=== PATIENT | female | born 1945 | race Two or more races ===

== ENCOUNTER → 2024-08-21 | Outpatient (CLI) | payer OTHER, SELFPAY ==
[2024-08-21 11:40] LABS: Collection Type, Urine Clean Catch
[2024-08-21 12:06] LABS: Basophils # (Auto) 0.1 Thou/mm3 (0.0-0.2); Basophils % (Auto) 1 % (0-2.5); Eosinophils % (Auto) 0 % (0-10); Hematocrit 37.6 % (36.0-46.0); Hemoglobin 12.7 g/dL (12.0-16.0); Immature Granulocytes % (Auto) 0 % (0-0); Immature Granulocytes Auto 0.02 Thou/mm3 (0.00-0.00); Lymphocytes # (Auto) 1.1 Thou/mm3 (1.0-4.8); Lymphocytes % (Auto) 13 % (10-50); Mean Corpuscular HGB Conc 33.8 g/dl (31.0-37.0); Mean Corpuscular Hemoglobin 31.1 pg (25.0-35.0); Mean Corpuscular Volume 92 fL (80-100); Monocytes # (Auto) 0.6 Thou/mm3 (0.0-0.8); Monocytes % (Auto) 7 % (0-12); Neutrophils # (Auto) 6.9 Thou/mm3 (1.8-7.7); Neutrophils % (Auto) 79 % (37-80); Nucleated Red Blood Cell % 0 /100 WBC (0); Platelet Count 245 Thou/mm3 (140-440); RDW Standard Deviation 45.5 fL (36.4-46.3); Red Blood Count 4.09 Miln/mm3 (4.00-5.20); White Blood Count 8.8 Thou/mm3 (3.6-11.0)
[2024-08-21 12:07] LABS: Bilirubin,Urine Negative (Negative); Blood,Urine Negative (Negative); Clarity,Urine Clear (Clear/Hazy); Color,Urine Colorless (Lt Yel-Yel); Culture Indicated,Urine Not Indicated; Glucose, Urine Negative (Negative); Ketones,Urine Negative (Negative); Leukocyte Esterase,Urine Negative (Negative); Nitrite,Urine Negative (Negative); Protein,Urine Negative (Neg - Trace); RBC,Urine 3 /hpf (0-3); Specific Gravity,Urine 1.009 (1.001-1.035); Squamous Epithelial Cell,Urine < 1 /hpf (0-5); Urobilinogen,Urine Negative mg/dL (0.0-1.0); WBC,Urine < 1 /hpf (0-5)
[2024-08-21 12:19] LABS: Alanine Aminotransferase 11 U/L (10-49); Albumin, Serum 4.9 gm/dL (3.4-4.8); Alkaline Phosphatase 97 U/L (46-116); Anion Gap 9 (7-16); Aspartate Amino Transferase 24 U/L (0-34); BUN/Creatinine Ratio 25 Ratio (12-20); Bilirubin,Total 0.4 mg/dL (0.3-1.2); Blood Urea Nitrogen 15 mg/dL (9-23); Calcium 10.1 mg/dL (8.3-10.6); Calcium (Corrected) 10.1 mg/dL (8.5-10.1); Carbon Dioxide 26.7 mMol/L (20.0-31.0); Cardiac Risk Estimate 2.1 RATIO (3.7-5.6); Chloride 97 mMol/L (98-107); Cholesterol 207 mg/dL (132-200); Creatinine (Component) 0.6 mg/dL (0.6-1.3); Globulin 2.4 gm/dL (2.3-3.5); Glucose 97 mg/dL (74-106); HDL Cholesterol 98 mg/dL (40-60); LDL Cholesterol,Calculated 95 mg/dL (0-130); Osmolality,Calculated 267 (275-295); Potassium 3.9 mMol/L (3.4-5.1); Sodium 133 mMol/L (136-145); Thyroid Stimulating Hormone 1.67 uIU/mL (0.55-4.78); Total Protein 7.3 gm/dL (5.7-8.2); Triglycerides 68 mg/dL (30-150); eGFR > 60 See Note
[2024-08-21 12:44] LABS: Glucose Estimated Average 94 mg/dL (80-131); Hemoglobin A1C 4.9 % Hgb (4.8-6.0)
== END | disposition home or self-care (01) ==
LOC: COPL 11:05
PROVIDERS: PCP Internal Medicine; Referring Provider Internal Medicine; Visit Provider Internal Medicine
DX: R10.9 Unspecified abdominal pain (principal); I10 Essential (primary) hypertension; K21.9 Gastro-esophageal reflux disease without esophagitis
CPT/HCPCS: 36415; 80053; 80061; 81001; 83036; 84443; 85025

== ENCOUNTER → 2024-08-22 | Outpatient (BNVA) | payer OTHER, SELFPAY | END | disposition home or self-care (01) | PROVIDERS: PCP Family Medicine; Referring Provider Family Medicine; Visit Provider Urology | DX: G89.4 Chronic pain syndrome (principal); N81.10 Cystocele, unspecified; N81.6 Rectocele; Z87.440 Personal history of urinary (tract) infections; K57.92 Diverticulitis of intestine, part unspecified, without perforation or abscess without bleeding; K57.90 Diverticulosis of intestine, part unspecified, without perforation or abscess without bleeding; I10 Essential (primary) hypertension; K21.9 Gastro-esophageal reflux disease without esophagitis | CPT/HCPCS: 99212; G0463 ==

== ENCOUNTER → 2024-09-21 | Outpatient (CLI) | payer OTHER, MEDICAID, SELFPAY ==
[2024-09-21 12:34] LABS: T4 (Thyroxine) 9.5 mcg/dL (4.5-10.9)
[2024-09-21 12:37] LABS: Alanine Aminotransferase 26 U/L (10-49); Albumin, Serum 5.1 gm/dL (3.4-4.8); Albumin/Globulin Ratio 1.8 (1.2-2.2); Alkaline Phosphatase 104 U/L (46-116); Anion Gap 10 (7-16); Aspartate Amino Transferase 24 U/L (0-34); BUN/Creatinine Ratio 23 Ratio (12-20); Bilirubin,Total 0.3 mg/dL (0.3-1.2); Blood Urea Nitrogen 16 mg/dL (9-23); Calcium 10.2 mg/dL (8.3-10.6); Calcium (Corrected) 10.2 mg/dL (8.5-10.1); Carbon Dioxide 27.1 mMol/L (20.0-31.0); Chloride 97 mMol/L (98-107); Creatinine (Component) 0.7 mg/dL (0.6-1.3); Free T4 (Free Thyroxine) 1.31 ng/dL (0.89-1.76); Globulin 2.8 gm/dL (2.3-3.5); Glucose 100 mg/dL (74-106); Osmolality,Calculated 269 (275-295); Potassium 3.9 mMol/L (3.4-5.1); Sodium 134 mMol/L (136-145); Thyroid Stimulating Hormone 1.74 uIU/mL (0.55-4.78); Total Protein 7.9 gm/dL (5.7-8.2); eGFR > 60 See Note
[2024-09-27 07:07] LABS: ACTH, Plasma* 28 pg/mL (6-50)
[2024-10-02 06:55] LABS: Cortisol,total,LC/MS/MS* 11.8 mcg/dL; DHEA Sulfate* 36 mcg/dL (7-177); T3,Total* 111 ng/dL (76-181)
== END | disposition home or self-care (01) ==
LOC: COPL 10:57
PROVIDERS: PCP Family Medicine; Referring Provider Internal Medicine; Visit Provider Internal Medicine
DX: E87.1 Hypo-osmolality and hyponatremia (principal)
CPT/HCPCS: 36415; 80053; 82024; 82533; 82627; 84436; 84439; 84443; 84480

== ENCOUNTER → 2024-09-27 | Outpatient (CLI) | payer OTHER, MEDICAID, SELFPAY ==
[2024-09-27 17:01] LABS: OBS Card Expiration Date 2026-09; OBS Card Lot # 23001; OBS Performed By LAB; OBS QC OK? Yes
[2024-09-27 17:45] LABS: OBS Developer Lot # 23003; Occult Blood, Stool Negative (Negative); Occult Blood, Stool #2 Negative (Negative); Occult Blood, Stool #3 Negative (Negative)
== END | disposition home or self-care (01) ==
LOC: SLDO 16:57
PROVIDERS: PCP Internal Medicine; Referring Provider Internal Medicine; Visit Provider Internal Medicine
DX: R10.9 Unspecified abdominal pain (principal)
CPT/HCPCS: 82270

== ENCOUNTER → 2025-01-19 | Outpatient (CLI) | payer OTHER, MEDICAID, SELFPAY | END | disposition home or self-care (01) | LOC: SLDO 14:53 | PROVIDERS: PCP Family Medicine; Referring Provider Nurse Practitioner Family; Visit Provider Nurse Practitioner Family | DX: N39.0 Urinary tract infection, site not specified (principal) | CPT/HCPCS: 87077; 87086; 87186 ==

== ENCOUNTER 2025-02-03 18:54 | Emergency (ER) | payer OTHER, MEDICAID, SELFPAY ==
[2025-02-03 19:15] VITALS: BP 167/82; PULSE 98; RESP 18; TEMP 36.6; O2SAT 97; BMI 17.5
--- NOTE | 2025-02-03 19:18 | PD.EDRME ---
Rapid Medical Screening Exam RME Arrival date/time: 02/03/25 18:54 Chief Complaint: Urogenital-Female Time Seen by Provider: 02/03/25 19:01 Vital signs: Vital Signs Temperature 98 F 02/03/25 19:15 Pulse Rate 98 02/03/25 19:15 Respiratory Rate 18 02/03/25 19:15 Blood Pressure 167/82 H 02/03/25 19:15 Pulse Oximetry (%) 97 02/03/25 19:15 Oxygen Delivery Method Room Air 02/03/25 19:15 RME Narrative: Dysuria, urgency x3 weeks. Patient completed course of Macrobid 4 days ago without symptom improvement. Denies fever, vomiting, flank pain
[2025-02-03 19:40] LABS: Collection Type, Urine Clean Catch
[2025-02-03 19:45] LABS: Bilirubin,Urine Negative (Negative); Blood,Urine Negative (Negative); Clarity,Urine Clear (Clear/Hazy); Color,Urine Lt-Yellow (Lt Yel-Yel); Glucose, Urine Negative (Negative); Ketones,Urine Negative (Negative); Leukocyte Esterase,Urine Negative (Negative); Nitrite,Urine Negative (Negative); PH,Urine 6.5 (5.0-7.0); Protein,Urine Negative (Neg - Trace); RBC,Urine 2 /hpf (0-3); Specific Gravity,Urine 1.008 (1.001-1.035); Squamous Epithelial Cell,Urine 4 /hpf (0-5); Urobilinogen,Urine Negative mg/dL (0.0-1.0); WBC,Urine 2 /hpf (0-5)
--- NOTE | 2025-02-03 20:10 | PD.EDFMALE ---
ED Female Urogenital RME/HPI General Chief complaint: Urogenital-Female Stated complaint: BLADDER INFECTION PAIN IN SIDES, EARS BUZZING Time Seen by Provider: 02/03/25 19:01 Arrival date/time: 02/03/25 18:54 RME / HPI RME / HPI Narrative: 79-year-old female patient with significant history of hypertension came in for evaluation regarding dysuria, urgency x3 weeks. Patient completed course of Macrobid 4 days ago without symptom improvement. Denies fever, vomiting, flank pain. Patient denies any vomiting. Denies any earache. Related Data Home Medications ?Medication ?Instructions ?Recorded ?Confirmed nifedipine 90 mg tablet,extended 90 mg PO DAILY 03/18/21 08/22/24 release benazepril 20 mg tablet 20 mg PO DAILY 09/24/21 08/22/24 cilostazol 100 mg tablet 100 mg PO DAILY 09/24/21 08/22/24 fluticasone propionate 50 2 spray intranasal DAILY 09/24/21 08/22/24 mcg/actuation nasal spray,suspension loratadine 10 mg tablet 10 mg PO DAILY 09/24/21 08/22/24 omeprazole 40 mg capsule,delayed 40 mg PO DAILY 09/24/21 08/22/24 release docusate sodium 100 mg capsule 100 mg PO BID 03/15/23 08/22/24 estradiol 0.01% (0.1 mg/gram) 2 g vaginal DIRECTED 08/22/24 08/22/24 vaginal cream (Estrace) Previous Rx's ?Medication ?Instructions ?Recorded sodium chloride 1,000 mg soluble 1,000 mg PO QDAY #30 tabs 10/22/23 tablet Allergies Allergy/AdvReac Type Severity Reaction Status Date / Time ciprofloxacin Allergy Severe Gastrointestinal Verified 02/03/25 18:57 Upset codeine Allergy Severe SOB/CHEST Verified 02/03/25 18:57 PAIN Penicillins Allergy Severe Difficulty Verified 02/03/25 18:57 Breathing sulfamethoxazole Allergy Severe Hallucinati Verified 02/03/25 18:57 ng adhesive tape Allergy Intermediate Rash Verified 02/03/25 18:57 Review of Systems Review of Systems Narrative Review of Systems: Review of system reviewed and within normal limits except mentioned in HPI ED Exam Narrative Physical exam: VITAL SIGNS: Reviewed. GENERAL APPEARANCE: Alert and interactive, follows commands, no acute distress, HEAD AND FACE: Non-traumatic. ENT: PERRL, pink conjunctivitis, eyelid no trauma, Mucous membrane moist. NECK: Supple, nontender, no nuchal rigidity. CHEST: No tenderness, no crepitus, no paradoxical movement, no retractions. LUNGS: Clear, well ventilated, symmetric, no rales, no wheezing, no ronchi, no stridor, good breath sounds bilaterally. HEART: Regular rate, regular rhythm, no murmur, no gallops. ABDOMEN: Soft, positive bowel sounds, nondistended, no guarding, nontender, no rebound, no masses, RECTAL: Deferred. GENITAL: Deferred. NEUROLOGICAL: Gross motor function intact sensory function intact, Appropriate for age. MUSCULOSKELETAL: low back nontender, full range of motion. EXTREMITIES: Nontender, full range of motion. SKIN: Color pink, dry, no rash, no lacerations, no abrasions, no contusions. LYMPHATICS: Deferred. Course Quality Measures none Orders Category Date Time Status UA [Urinalysis] Stat Lab 02/03/25 19:35 Completed Urine Culture Stat Lab 02/03/25 19:19 Received Vital Signs Vital signs: Vital Signs Temperature 98 F 02/03/25 19:15 Pulse Rate 98 02/03/25 19:15 Respiratory Rate 18 02/03/25 19:15 Blood Pressure 167/82 H 02/03/25 19:15 Pulse Oximetry (%) 97 02/03/25 19:15 Oxygen Delivery Method Room Air 02/03/25 19:15 Urogenital - Female MDM Narrative MDM Narrative:: 79-year-old female patient with significant history of hypertension came in for evaluation regarding dysuria, urgency x3 weeks. Patient completed course of Macrobid 4 days ago without symptom improvement. Denies fever, vomiting, flank pain. Patient denies any vomiting. Denies any earache. Patient's urinalysis came back unremarkable. Patient was advised to drink a lot of fluids and follow-up with PCP if symptoms persist patient is to be seen by urologist. Patient agrees with plan Patient data External records reviewed:: None Clinical information provided by:: patient Social determinants that could affect healthcare access:: none Patient has the following chronic illnesses:: None How is presenting disease/condition affected by chronic disease/condition?: no chronic disease Evaluation data The following diagnostics were reviewed and interpreted by me:: lab results Lab and/or radiology exams considered but not ordered:: None Interpretation Summary: Urinalysis came back unremarkable. No sign of UTI Medications / Prescriptions Medications or Prescriptions considered but not ordered:: None Medication administrations:: None Consultations Consultation(s) initiated? (list below): No Diagnosis Urogenital Female Differential Diagnosis: urinary tract infection, vaginitis and cystitis Most likely diagnosis given after review of the tests above:: Dysuria Admission Indicated Admission indicated?: not indicated Admission Request Was there a request for admission?: No Disposition Plan Disposition Plan: Discharge Discharge Attestation Discharge Attestation: The patient and all family members were given an opportunity to ask questions and understood the discharge instructions. Discharge instructions specifically effects, indications for sooner follow up or return to the emergency department, and the expected course of current diagnosis. Patient condition: Stable Discharge Plan Plan Patient Disposition: HOME (Self Care) Discharge Disposition comment: Stable Prescriptions/Referrals Prescriptions/Med Rec: No Action nifedipine 90 mg tablet extended release 90 mg PO DAILY estradiol [Estrace] 0.01 % (0.1 mg/gram) cream 2 g vaginal DIRECTED Patient Comments: Twice a week cilostazol 100 mg tablet 100 mg PO DAILY omeprazole 40 mg capsule,delayed release(DR/EC) 40 mg PO DAILY benazepril 20 mg tablet 20 mg PO DAILY fluticasone propionate 50 mcg/actuation spray,suspension 2 spray INTRANASAL DAILY loratadine 10 mg tablet 10 mg PO DAILY sodium chloride 1,000 mg tablet,soluble 1,000 mg PO QDAY Qty: 30 0RF docusate sodium 100 mg Capsule 100 mg PO BID Referrals: Constantine Campbell [Primary Care Provider] - In 1 week Problem List Clinical Impression: Dysuria Patient/Caregiver Discharge Instructions Discharge Activity: activity as tolerated Education Materials: ED Dysuria, Uncertain Cause (Adult) Additional Instructions: Thank you for the opportunity for serving you today. You are stable for discharged . You are advised to: Follow-up with your PCP in 1 to 2 days Return to ED for worsening of symptoms Increase oral fluids Print Language: Mohawk Stand Alone Forms: Leilani Award Info., Patient Portal Info Letter
[2025-02-03 20:37] VITALS: RESP 16
== END 2025-02-03 20:37 | disposition home or self-care (01) ==
PROVIDERS: Physician Assistant; Emergency Provider Emergency Medicine; PCP Internal Medicine
DX: R30.0 Dysuria (principal); I10 Essential (primary) hypertension
CPT/HCPCS: 81001; 87086; 99283

== ENCOUNTER → 2025-02-20 | Outpatient (BNVA) | payer OTHER, MEDICAID, SELFPAY | END | disposition home or self-care (01) | PROVIDERS: PCP Family Medicine; Referring Provider Family Medicine; Visit Provider Urology | DX: N81.10 Cystocele, unspecified (principal); N81.6 Rectocele; Z87.440 Personal history of urinary (tract) infections; I10 Essential (primary) hypertension; K21.9 Gastro-esophageal reflux disease without esophagitis | CPT/HCPCS: 81003; 99212; G0463 ==

== ENCOUNTER 2025-03-01 16:38 | Emergency (ER) | payer OTHER, MEDICAID, SELFPAY ==
[2025-03-01 17:28] VITALS: BP 173/66; PULSE 89; RESP 18; TEMP 36.7; O2SAT 99
[2025-03-01 17:29] VITALS: BMI 20.5
--- NOTE | 2025-03-01 17:31 | XR_ITS ---
Examination: PA chest single view TECHNIQUE: Upright PA chest single view Date and time: March 01, 2025 1755 hours Comparison April 18, 2024 INDICATIONS: Epigastric pain today. FINDINGS: Normal heart size. No pneumonia or pulmonary edema Moderate hyperexpansion Prominent osteopenia IMPRESSION: COPD. No pneumonia or pulmonary edema
--- NOTE | 2025-03-01 17:31 | EKG_ITS ---
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
--- NOTE | 2025-03-01 17:32 | EDNOTE_ITS ---
<Statement entered by Courtney Baires MD - 03/02/25 18:31> As co-signing physician, I was present and available for consult prn. I concur with the plan and care as documented by the midlevel provider. ED Abdominal Pain RME/HPI General Chief Complaint: Abdominal Pain Stated complaint: PAIN IN STOMACH SINCE LAST WEEK; ACID REFLUX Time seen by provider: 03/01/25 17:27 Arrival date/time: 03/01/25 16:38 RME / HPI RME / HPI narrative: 80-year-old female patient came in for evaluation regarding epigastric pain. Patient has been having worsening epigastric pain for at least 1 week, described as burning-like sensation, associated with nausea. Patient denies any chest pain. Denies any shortness of breath denies any cough denies any diarrhea or constipation denies any fever denies any complaints no medications Prior travel. Related Data Home Medications ?Medication ?Instructions ?Recorded ?Confirmed nifedipine 90 mg tablet,extended 90 mg PO DAILY 08/22/24 release benazepril 20 mg tablet 20 mg PO DAILY 09/24/2112/11 cilostazol 100 mg tablet 100 mg PO DAILY 09/24/2112/11 fluticasone propionate 50 2 spray intranasal DAILY 02/0808/22/24 mcg/actuation nasal spray,suspension loratadine 10 mg tablet 10 mg PO DAILY 09/24/2112/11 omeprazole 40 mg capsule,delayed 40 mg PO DAILY 08/22/24 release docusate sodium 100 mg capsule 100 mg PO BID 03/15/23 08/22/24 estradiol 0.01% (0.1 mg/gram) 2 g vaginal DIRECTED 08/22/24 08/22/24 vaginal cream (Estrace) Previous Rx's ?Medication ?Instructions ?Recorded sodium chloride 1,000 mg soluble 1,000 mg PO QDAY #30 tabs 10/22/23 tablet aluminum-mag hydroxide-simethicone 10 ml PO TID PRN in digestion #300 03/01/25 400 mg-400 mg-40 mg/5 mL oral susp mL (Maalox Maximum Strength) pantoprazole 40 mg tablet,delayed 40 mg PO QDAY #30 ta bs 03/01/25 release (Protonix) Allergies Allergy/AdvReac Type Severity Reaction Status Date / Time ciprofloxacin Allergy Severe Gastrointestinal Verified 03/01/25 16:41 Upset codeine Allergy Severe SOB/CHEST Verified 03/01/25 16:41 PAIN Penicillins Allergy Severe Difficulty Verified 03/01/25 16:41 Breathing sulfamethoxazole Allergy Severe Hallucinati Verified 03/01/25 16:41 ng adhesive tape Allergy Intermediate Rash Verified 03/01/25 16:41 Review of Systems Review of Systems Narrative Review of Systems: Review of system reviewed and within normal limits except mentioned in HPI ED Exam Narrative Physical exam: VITAL SIGNS: Reviewed. GENERAL APPEARANCE: Alert and interactive, follows commands, no acute distress, HEAD AND FACE: Non-traumatic. ENT: PERRL, pink conjunctivitis, eyelid no trauma, Mucous membrane moist. NECK: Supple, nontender, no nuchal rigidity. CHEST: No tenderness, no crepitus, no paradoxical movement, no retractions. LUNGS: Clear, well ventilated, symmetric, no rales, no wheezing, no ronchi, no stridor, good breath sounds bilaterally. HEART: Regular rate, regular rhythm, no murmur, no gallops. ABDOMEN: Soft, positive bowel sounds, nondistended, no guarding, epigastric tenderness,, no rebound, no masses, RECTAL: Deferred. GENITAL: Deferred. NEUROLOGICAL: Gross motor function intact sensory function intact, Appropriate for age. MUSCULOSKELETAL: low back nontender, full range of motion. EXTREMITIES: Nontender, full range of motion. SKIN: Color pink, dry, no rash, no lacerations, no abrasions, no contusions. LYMPHATICS: Deferred. Course Quality Measures none Orders Category Date Time Status EKG (ED ONLY) *Do not use* NOW Care 03/01/25 17:31 Completed EKG (ED Only) Stat Exams 03/01/25 17:31 Draft XR chest 1V Stat Exams 03/01/25 17:31 Completed CBC Stat Lab 03/01/25 17:44 Completed Comprehensive Metabolic Panel Stat Lab 03/01/25 17:44 Completed Partial Thromboplastin Time Stat Lab 03/01/25 17:44 Completed Troponin I Stat Lab 03/01/25 17:44 Completed Urinalysis, C/S if Indicated Stat Lab 03/01/25 18:20 Completed Acetaminophen Tab [Tylenol ES Tab] Med 03/01/25 17:32 Discontinued 500 mg PO X1 ONE mg Hyd/Al Hyd/Melonie Susp [Maalox Susp] Med 03/01/25 17:32 Discontinued 30 ml PO X1 ONE Vital Signs Vital signs: Vital Signs Temperature 98.0 F 03/01/25 17:28 Pulse Rate 89 03/01/25 17:28 Respiratory Rate 18 03/01/25 17:28 Blood Pressure 173/66 H 03/01/25 17:28 Pulse Oximetry (%) 99 03/01/25 17:28 Oxygen Delivery Method Room Air 03/01/25 17:28 Abdominal Pain MDM [facility] Narrative [facility] Narrative:: 80-year-old female patient came in for evaluation regarding epigastric pain. Patient has been having worsening epigastric pain for at least 1 week, described as burning-like sensation, associated with nausea. Patient denies any chest pain. Denies any shortness of breath denies any cough denies any diarrhea or constipation denies any fever denies any complaints no medications Prior travel. Patient's cardiac workup all came back unremarkable including normal chest x- ray. Patient was given Maalox with significant improvement of symptoms. EKG showed normal sinus rhythm, ventricular rate of [address] segment elevat ion depression noted. Patient appears nontoxic and hemodynamically stable .Decision to discharge the patient. The patient/family was given an opportunity to ask questions and understood their discharge instructions. Discharge instructions specifically included follow up provider and time frame, current and/or new medications and possible side effects, indications for sooner follow up or return to the emergency department, and the expected course of current diagnosis. Patient reports feeling better as well and giving evidence of significant clinical improvement, I believe patient is now a candidate for discharge. Patient data External records reviewed:: None Clinical information provided by:: patient Social determinants that could affect healthcare access:: none Patient has the following chronic illnesses:: None How is presenting disease/condition affected by chronic disease/condition?: no chronic disease Evaluation data The following diagnostics were reviewed and interpreted by me:: lab results, radiology exam(s) and EKG tracing(s) Lab and/or radiology exams considered but not ordered:: None Interpretation Summary: See results [facility] Medications / Prescriptions Medications or Prescriptions considered but not ordered:: None Medication administrations:: Medication Administration History Discontinued Medications Acetaminophen (Acetaminophen 500 Mg Tablet) 500 mg PO X1 ONE Stop: 03/01/25 17:33 Last Admin: 03/01/25 17:46 Dose: 500 mg Documented By: DANIELA Al Hydrox/Mg Hydrox/Simethicone (Mg Hyd/Al Hyd/Melonie (Maalox Reg) Susp 30 Ml Udc) 30 ml PO X1 ONE Stop: 03/01/25 17:33 Last Admin: 03/01/25 17:46 Dose: 30 ml Documented By: DANIELA Tylenol Maalox Consultations Consultation(s) initiated? (list below): No Diagnosis Differential diagnosis abdominal pain: abdominal pain, gastroenteritis and other (GERD) Most likely diagnosis given after review of the tests above:: GERD Admission Indicated Admission indicated?: not indicated Admission Request Was there a request for admission?: No Disposition Plan Disposition Plan: Discharge Discharge Attestation Discharge Attestation: The patient and all family members were given an opportunity to ask questions and understood the discharge instructions. Discharge instructions specifically effects, indications for sooner follow up or return to the emergency department, and the expected course of current diagnosis. Patient condition: Stable Discharge Plan Plan Patient Disposition: HOME (Self Care) Discharge Disposition comment: Stable Prescriptions/Referrals Prescriptions/Med Rec: New pantoprazole [Protonix] 40 mg tablet,delayed release (DR/EC) 40 mg PO QDAY Qty: 30 0RF alum-mag hydroxide-simeth [Maalox Maximum Strength] 400-400-40 mg/5 mL suspension 10 ml PO TID PRN (Reason: indigestion) Qty: 300 0RF No Action nifedipine 90 mg tablet extended release 90 mg PO DAILY estradiol [Estrace] 0.01 % (0.1 mg/gram) cream 2 g vaginal DIRECTED Patient Comments: Twice a week cilostazol 100 mg tablet 100 mg PO DAILY omeprazole 40 mg capsule,delayed release(DR/EC) 40 mg PO DAILY benazepril 20 mg tablet 20 mg PO DAILY fluticasone propionate 50 mcg/actuation spray,suspension 2 spray INTRANASAL DAILY loratadine 10 mg tablet 10 mg PO DAILY sodium chloride 1,000 mg tablet,soluble 1,000 mg PO QDAY Qty: 30 0RF docusate sodium 100 mg Capsule 100 mg PO BID Referrals: No Primary/Family,Physician [Primary Care Provider] - In 1 week Problem List Clinical Impression: GERD (gastroesophageal reflux disease) Patient/Caregiver Discharge Instructions Discharge Activity: activity as tolerated Education Materials: ED GERD (Adult) Additional Instructions: Thank you for the opportunity for serving you today. You are stable for discharged . You are advised to: Follow-up with your PCP in 1 to 2 days Return to ED for worsening of symptoms Increase oral fluids Take medication as prescribed Print Language: Colombian Stand Alone Forms: Leilani Award Info., Patient Portal Info Letter PA/CARTON FOLDER Supervising Physician MECHELLE/AGNIESZKA Supervising Physician: MD Dequan
[2025-03-01] MEDS: MG HYD/AL HYD/SIME (Maalox Reg) SUSP 30 ML UDC PO (17:46)
[2025-03-01] MEDS: ACETAMINOPHEN 500 MG TABLET PO (17:46)
[2025-03-01 17:53] LABS: Basophils # (Auto) 0.1 Thou/mm3 (0.0-0.2); Basophils % (Auto) 1 % (0-2.5); Eosinophils # (Auto) 0.1 Thou/mm3 (0.0-0.5); Eosinophils % (Auto) 1 % (0-10); Hemoglobin 11.8 g/dL (12.0-16.0); Immature Granulocytes % (Auto) 0 % (0-0); Immature Granulocytes Auto 0.02 Thou/mm3 (0.00-0.00); Lymphocytes # (Auto) 1.6 Thou/mm3 (1.0-4.8); Lymphocytes % (Auto) 17 % (10-50); Mean Corpuscular HGB Conc 35.8 g/dl (31.0-37.0); Mean Corpuscular Hemoglobin 30.4 pg (25.0-35.0); Mean Corpuscular Volume 85 fL (80-100); Monocytes # (Auto) 0.8 Thou/mm3 (0.0-0.8); Monocytes % (Auto) 8 % (0-12); Neutrophils # (Auto) 7.2 Thou/mm3 (1.8-7.7); Neutrophils % (Auto) 73 % (37-80); Nucleated Red Blood Cell % 0 /100 WBC (0); Platelet Count 237 Thou/mm3 (140-440); RDW Standard Deviation 43.2 fL (36.4-46.3); Red Blood Count 3.88 Miln/mm3 (4.00-5.20); White Blood Count 9.9 Thou/mm3 (3.6-11.0)
[2025-03-01 18:07] LABS: Partial Thromboplastin Time 29.3 Seconds (22.0-36.0)
[2025-03-01 18:11] LABS: Alanine Aminotransferase 20 U/L (10-49); Albumin, Serum 4.9 gm/dL (3.4-4.8); Albumin/Globulin Ratio 1.9 (1.2-2.2); Alkaline Phosphatase 105 U/L (46-116); Anion Gap 10 (7-16); Aspartate Amino Transferase 23 U/L (0-34); BUN/Creatinine Ratio 14 Ratio (12-20); Bilirubin,Total 0.2 mg/dL (0.3-1.2); Blood Urea Nitrogen 10 mg/dL (9-23); Calcium 9.4 mg/dL (8.3-10.6); Calcium (Corrected) 9.4 mg/dL (8.5-10.1); Carbon Dioxide 27.3 mMol/L (20.0-31.0); Chloride 95 mMol/L (98-107); Creatinine (Component) 0.7 mg/dL (0.6-1.3); Estimated Creatinine Clearance 42.1 mL/min (>60); Globulin 2.6 gm/dL (2.3-3.5); Glucose 98 mg/dL (74-106); Osmolality,Calculated 263 (275-295); Potassium 3.5 mMol/L (3.4-5.1); Sodium 132 mMol/L (136-145); Total Protein 7.5 gm/dL (5.7-8.2); Troponin I < 0.020 ng/mL (0.0-0.045); eGFR > 60 See Note
[2025-03-01 18:48] LABS: Collection Type, Urine Clean Catch
[2025-03-01 18:55] LABS: Bilirubin,Urine Negative (Negative); Blood,Urine Negative (Negative); Clarity,Urine Clear (Clear/Hazy); Color,Urine Colorless (Lt Yel-Yel); Culture Indicated,Urine Not Indicated; Glucose, Urine Negative (Negative); Ketones,Urine Negative (Negative); Leukocyte Esterase,Urine Negative (Negative); Nitrite,Urine Negative (Negative); PH,Urine 6.5 (5.0-7.0); Protein,Urine Negative (Neg - Trace); RBC,Urine 2 /hpf (0-3); Specific Gravity,Urine 1.009 (1.001-1.035); Squamous Epithelial Cell,Urine 1 /hpf (0-5); Urobilinogen,Urine Negative mg/dL (0.0-1.0); WBC,Urine 1 /hpf (0-5)
[2025-03-01 19:29] VITALS: BP 132/77; PULSE 78; RESP 18; TEMP 36.8; O2SAT 98
== END 2025-03-01 19:30 | disposition home or self-care (01) ==
PROVIDERS: Nurse Practitioner Family; Emergency Provider Emergency Medicine
DX: K21.9 Gastro-esophageal reflux disease without esophagitis (principal); J44.9 Chronic obstructive pulmonary disease, unspecified
CPT/HCPCS: 36415; 71045; 80053; 81001; 84484; 85025; 85730; 93005; 99283; A9270

== ENCOUNTER → 2025-03-15 | Outpatient (CLI) | payer OTHER, MEDICAID, SELFPAY ==
[2025-03-15 17:53] LABS: Basophils # (Auto) 0.1 Thou/mm3 (0.0-0.2); Basophils % (Auto) 1 % (0-2.5); Eosinophils # (Auto) 0.1 Thou/mm3 (0.0-0.5); Eosinophils % (Auto) 1 % (0-10); Hematocrit 34.4 % (36.0-46.0); Hemoglobin 11.5 g/dL (12.0-16.0); Immature Granulocytes % (Auto) 0 % (0-0); Immature Granulocytes Auto 0.03 Thou/mm3 (0.00-0.00); Lymphocytes # (Auto) 1.4 Thou/mm3 (1.0-4.8); Lymphocytes % (Auto) 15 % (10-50); Mean Corpuscular HGB Conc 33.4 g/dl (31.0-37.0); Mean Corpuscular Hemoglobin 30.1 pg (25.0-35.0); Mean Corpuscular Volume 90 fL (80-100); Monocytes # (Auto) 0.8 Thou/mm3 (0.0-0.8); Monocytes % (Auto) 9 % (0-12); Neutrophils % (Auto) 75 % (37-80); Nucleated Red Blood Cell % 0 /100 WBC (0); Platelet Count 149 Thou/mm3 (140-440); RDW Standard Deviation 46.2 fL (36.4-46.3); Red Blood Count 3.82 Miln/mm3 (4.00-5.20); White Blood Count 9.3 Thou/mm3 (3.6-11.0)
[2025-03-15 18:06] LABS: Alanine Aminotransferase 21 U/L (10-49); Albumin, Serum 4.5 gm/dL (3.4-4.8); Albumin/Globulin Ratio 1.9 (1.2-2.2); Alkaline Phosphatase 89 U/L (46-116); Anion Gap 10 (7-16); Aspartate Amino Transferase 28 U/L (0-34); BUN/Creatinine Ratio 17 Ratio (12-20); Bilirubin,Total 0.2 mg/dL (0.3-1.2); Blood Urea Nitrogen 12 mg/dL (9-23); Calcium 9.1 mg/dL (8.3-10.6); Calcium (Corrected) 9.1 mg/dL (8.5-10.1); Carbon Dioxide 26.4 mMol/L (20.0-31.0); Chloride 97 mMol/L (98-107); Creatinine (Component) 0.7 mg/dL (0.6-1.3); Globulin 2.4 gm/dL (2.3-3.5); Glucose 101 mg/dL (74-106); Osmolality,Calculated 266 (275-295); Potassium 3.7 mMol/L (3.4-5.1); Sodium 133 mMol/L (136-145); Total Protein 6.9 gm/dL (5.7-8.2); eGFR > 60 See Note
== END | disposition home or self-care (01) ==
LOC: COPL 16:27
PROVIDERS: PCP Internal Medicine; Referring Provider Internal Medicine; Visit Provider Internal Medicine
DX: R10.84 Generalized abdominal pain (principal); I10 Essential (primary) hypertension
CPT/HCPCS: 36415; 80053; 85025

== ENCOUNTER 2025-04-15 22:28 | Emergency (ER) | payer MEDICAID, SELFPAY ==
--- NOTE | 2025-04-15 22:30 | EKG_ITS ---
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
[2025-04-15 22:32] VITALS: BP 179/97; BP 190/106; PULSE 101; RESP 19; TEMP 36.7; O2SAT 99
[2025-04-15 22:34] VITALS: BMI 17.2
[2025-04-16 00:52] VITALS: BP 178/89; PULSE 77; RESP 18; TEMP 36.5; O2SAT 99
--- NOTE | 2025-04-16 01:52 | PD.EDRME ---
Rapid Medical Screening Exam RME Arrival date/time: 04/15/25 22:28 Chief Complaint: General Adult/Misc Complain Time Seen by Provider: 04/16/25 01:43 Vital signs: Vital Signs Temperature 98.1 F 04/15/25 22:32 Pulse Rate 101 H 04/15/25 22:32 Respiratory Rate 19 04/15/25 22:32 Blood Pressure 190/106 H 04/15/25 22:32 Pulse Oximetry (%) 99 04/15/25 22:32 Oxygen Delivery Method Room Air 04/15/25 22:32 Vital signs reviewed by provider: Yes RME Narrative: 80-year-old female with a past medical history of hypertension, GERD, and allergies presents to the ED with a complaint of elevated blood pressure for the past 1 week. She states she has been taking her blood pressure medications as prescribed. She has some associated nausea and frontal headache. She states she has been eating bologna sandwiches approximately twice weekly. She has not contacted her primary care physician but states she does have an appointment on the as previously scheduled. She denies any recent illness with fever, chills, cough, ear pain or sore throat. She denies any chest pain, shortness of breath, visual changes or unusual headache. She denies vomiting, diarrhea or abdominal pain. I have greeted and performed a focused initial assessment of this patient. A comprehensive ED assessment and evaluation of the patient, analysis of all test results, and completion of the medical decision making process will be conducted by additional ED providers.
--- NOTE | 2025-04-16 01:55 | XR_ITS ---
Examination: PA lateral chest 2 views TECHNIQUE: Upright PA and lateral chest 2 views Date and time: April 16, 2025, 0207 hours INDICATIONS: High blood pressure 1 week FINDINGS: Normal heart size Ectatic thoracic aorta. No pneumonia or pulmonary edema. Prominent osteopenia IMPRESSION: No pneumonia or pulmonary edema.
[2025-04-16 02:16] VITALS: BP 181/97; PULSE 80
[2025-04-16] MEDS: METOPROLOL SUCCINATE XL 25 MG TABCR PO (02:16)
[2025-04-16 02:29] LABS: Collection Type, Urine Clean Catch
[2025-04-16 02:42] LABS: Bilirubin,Urine Negative (Negative); Blood,Urine Negative (Negative); Clarity,Urine Clear (Clear/Hazy); Color,Urine Lt-Yellow (Lt Yel-Yel); Culture Indicated,Urine Not Indicated; Glucose, Urine Negative (Negative); Hyaline Casts,Urine < 1 /hpf (0-1); Ketones,Urine 1+ (Negative); Leukocyte Esterase,Urine Negative (Negative); Nitrite,Urine Negative (Negative); PH,Urine 7.5 (5.0-7.0); Protein,Urine Negative (Neg - Trace); RBC,Urine 3 /hpf (0-3); Specific Gravity,Urine 1.009 (1.001-1.035); Squamous Epithelial Cell,Urine 2 /hpf (0-5); Urobilinogen,Urine Negative mg/dL (0.0-1.0); WBC,Urine 1 /hpf (0-5)
[2025-04-16 02:44] LABS: Basophils # (Auto) 0.1 Thou/mm3 (0.0-0.2); Basophils % (Auto) 1 % (0-2.5); Eosinophils # (Auto) 0.0 Thou/mm3 (0.0-0.5); Eosinophils % (Auto) 0 % (0-10); Hematocrit 39.1 % (36.0-46.0); Hemoglobin 13.2 g/dL (12.0-16.0); Immature Granulocytes Auto 0.01 Thou/mm3 (0.00-0.00); Lymphocytes # (Auto) 1.7 Thou/mm3 (1.0-4.8); Lymphocytes % (Auto) 23 % (10-50); Mean Corpuscular HGB Conc 33.8 g/dl (31.0-37.0); Mean Corpuscular Hemoglobin 30.5 pg (25.0-35.0); Mean Corpuscular Volume 90 fL (80-100); Monocytes # (Auto) 0.6 Thou/mm3 (0.0-0.8); Monocytes % (Auto) 8 % (0-12); Neutrophils # (Auto) 5.0 Thou/mm3 (1.8-7.7); Neutrophils % (Auto) 68 % (37-80); Nucleated Red Blood Cell # 0.00 Thou/mm3 (0.00-0.00); Nucleated Red Blood Cell % 0 /100 WBC (0); Platelet Count 267 Thou/mm3 (140-440); RDW Standard Deviation 44.6 fL (36.4-46.3); Red Blood Count 4.33 Miln/mm3 (4.00-5.20); White Blood Count 7.3 Thou/mm3 (3.6-11.0)
[2025-04-16 03:00] LABS: INR 1.0 (0.9-1.3); Partial Thromboplastin Time 30.9 Seconds (22.0-36.0); Prothrombin Time 10.9 Seconds (9.0-12.2)
[2025-04-16 03:03] LABS: B-Type Natriuretic Peptide 31 pg/mL (0-100)
[2025-04-16 03:05] LABS: Alanine Aminotransferase 17 U/L (10-49); Albumin, Serum 5.2 gm/dL (3.4-4.8); Albumin/Globulin Ratio 1.7 (1.2-2.2); Alkaline Phosphatase 95 U/L (46-116); Anion Gap 12 (7-16); Aspartate Amino Transferase 24 U/L (0-34); BUN/Creatinine Ratio 10 Ratio (12-20); Bilirubin,Total 0.5 mg/dL (0.3-1.2); Blood Urea Nitrogen 7 mg/dL (9-23); Calcium 9.9 mg/dL (8.3-10.6); Calcium (Corrected) 9.9 mg/dL (8.5-10.1); Carbon Dioxide 25.2 mMol/L (20.0-31.0); Chloride 92 mMol/L (98-107); Creatinine (Component) 0.7 mg/dL (0.6-1.3); Estimated Creatinine Clearance 45.3 mL/min (>60); Globulin 3.1 gm/dL (2.3-3.5); Glucose 118 mg/dL (74-106); LDH (Lactate Dehydrogenase) 202 U/L (120-246); Magnesium 1.8 mg/dL (1.6-2.6); Osmolality,Calculated 257 (275-295); Potassium 3.6 mMol/L (3.4-5.1); Sodium 129 mMol/L (136-145); Total Protein 8.3 gm/dL (5.7-8.2); Troponin I < 0.020 ng/mL (0.0-0.045); eGFR > 60 See Note
[2025-04-16 03:06] VITALS: BP 184/110; BP 185/109; PULSE 78; RESP 18; TEMP 36.7; O2SAT 99
--- NOTE | 2025-04-16 03:48 | PD.EDRECHK ---
ED Recheck Abnl Lab Rx-RME/HPI General Chief Complaint: General Adult/Misc Complain Stated Complaint: HIGH BP Time Seen by Provider: 04/16/25 01:43 Arrival date/time: 04/15/25 22:28 RME / HPI RME / HPI narrative: 80-year-old female with a past medical history of hypertension, GERD, and allergies presents to the ED with a complaint of elevated blood pressure for the past 1 week. She states she has been taking her blood pressure medications as prescribed. She has some associated nausea and frontal headache. She states she has been eating [employer] sandwiches approximately twice weekly. She has not contacted her primary care physician but states she does have an appointment on the as previously scheduled. She denies any recent illness with fever, chills, cough, ear pain or sore throat. She denies any chest pain, shortness of breath, visual changes or unusual headache. She denies vomiting, diarrhea or abdominal pain. I have greeted and performed a focused initial assessment of this patient. A comprehensive ED assessment and evaluation of the patient, analysis of all test results, and completion of the medical decision making process will be conducted by additional ED providers. DR. HUFFMAN MAIN ED EVALUATION: 80 y/o female with Hx of HTN presents to ED c/o elevated blood pressure of 180/110 at home x 12 hours ago. Patient takes Benazepril 20 mg and 90 mg of an unknown medication each morning for management of hypertension. Denies any chest pain or shortness of breath. Denies any recent dietary changes. Patent has not yet spoken to PCP for changes in medication dosage. No other concerns or complaints expressed at this time. Related Data Home Medications ?Medication ?Instructions ?Recorded ?Confirmed nifedipine 90 mg tablet,extended 90 mg PO DAILY 03/18/21 08/22/24 release benazepril 20 mg tablet 20 mg PO DAILY 09/24/21 08/22/24 cilostazol 100 mg tablet 100 mg PO DAILY 09/24/21 08/22/24 fluticasone propionate 50 2 spray intranasal DAILY 09/24/21 08/22/24 mcg/actuation nasal spray,suspension loratadine 10 mg tablet 10 mg PO DAILY 09/24/21 08/22/24 omeprazole 40 mg capsule,delayed 40 mg PO DAILY 09/24/21 08/22/24 release docusate sodium 100 mg capsule 100 mg PO BID 03/15/23 08/22/24 estradiol 0.01% (0.1 mg/gram) 2 g vaginal DIRECTED 08/22/24 08/22/24 vaginal cream (Estrace) Previous Rx's ?Medication ?Instructions ?Recorded sodium chloride 1,000 mg soluble 1,000 mg PO QDAY #30 tabs 10/22/23 tablet aluminum-mag hydroxide-simethicone 10 ml PO TID PRN indigestion #300 03/01/25 400 mg-400 mg-40 mg/5 mL oral susp mL (Maalox Maximum Strength) pantoprazole 40 mg tablet,delayed 40 mg PO QDAY #30 tabs 03/01/25 release (Protonix) Allergies Allergy/AdvReac Type Severity Reaction Status Date / Time ciprofloxacin Allergy Severe Gastrointestinal Verified 04/15/25 22:28 Upset codeine Allergy Severe SOB/CHEST Verified 04/15/25 22:28 PAIN Penicillins Allergy Severe Difficulty Verified 04/15/25 22:28 Breathing sulfamethoxazole Allergy Severe Hallucinati Verified 04/15/25 22:28 ng adhesive tape Allergy Intermediate Rash Verified 03/01/25 16:41 Review of Systems Review of Systems Systems Reviewed: All systems reviewed, normal except as documented Past Medical History Past Medical History CARDIAC: Positive Cardiac Disorders and Hypertension GASTROINTESTINAL: Positive Gastrointestinal Disorders, Hemorrhoids and Gastroesophageal Reflux Disease REPRODUCTIVE: Positive Previous Pregnancies MUSCULOSKELETAL: Positive Musculoskeletal Disorders, Arthritis and Osteoporosis OTHER HISTORY: Positive Hospitalization (low sodium) Family History FAMILY HISTORY: Positive Family Cardiac Disorders Surgical History SURGICAL: Positive Cardiac Surgery, Abdominal Surgery and Hysterectomy ED Exam Narrative Physical exam: Generally the patient is alert and in no obvious distress, heart is regular rate and rhythm lungs clear to auscultation equal bilaterally abdomen soft bowel sounds present nondistended nontender no palpable mass neck shows no nuchal rigidity neurologic exam no focal motor or sensory deficits cranial nerves II through XII gross intact extremities show no edema Course Course Course Narrative: CXR is ordered for determining the etiology of shortness of breath. Quality Measures none Orders Category Date Time Status EKG (ED ONLY) *Do not use* NOW Care 04/15/25 22:30 Completed EKG (ED Only) Stat Exams 04/15/25 22:30 Draft XR chest 2V Stat Exams 04/16/25 01:55 Taken B-Type Natriuretic Peptide Stat Lab 04/16/25 02:35 Completed CBC Stat Lab 04/16/25 02:35 Completed Comprehensive Metabolic Panel Stat Lab 04/16/25 02:35 Completed LDH (Lactate Dehydrogenase) Stat Lab 04/16/25 02:35 Completed Magnesium Stat Lab 04/16/25 02:35 Completed Partial Thromboplastin Time Stat Lab 04/16/25 02:35 Completed Prothrombin Time with INR Stat Lab 04/16/25 02:35 Completed Troponin I Stat Lab 04/16/25 02:35 Completed Urinalysis, C/S if Indicated Stat Lab 04/16/25 02:14 Completed Metoprolol Succinate Xl [Toprol Xl] Med 04/16/25 01:57 Discontinued 25 mg PO X1 ONE Vital Signs Vital signs: Vital Signs Temperature 98.1 F 04/15/25 22:32 Pulse Rate 101 H 04/15/25 22:32 Respiratory Rate 19 04/15/25 22:32 Blood Pressure 190/106 H 04/15/25 22:32 Pulse Oximetry (%) 99 04/15/25 22:32 Oxygen Delivery Method Room Air 04/15/25 22:32 Recheck / Abnormal Lab / Rx MDM Narrative MDM Narrative:: Scribe Attestation: I, Sheila Chaudhari, am scribing for and in the presence of Dr. Huffman. Provider Notation: Although this document has been carefully reviewed, there may still be some phonetic and other typographical errors.? These errors are purely grammatical due to imperfections in the software program and should not be construed in any way to? compromise the substance of the patient's medical care during this visit. I interpreted all labs. EKG is nonischemic. Troponin is not elevated. Patient denies any headache chest pain or shortness of breath. This she is essentially asymptomatic hypertension. She will call her primary care physician office today to get recommendation on medication adjustments. She does not have her medications here with her. She may return to the emergency room as needed or if condition worsens. Patient data External records reviewed:: [facility] previous records (Reviewed prior ED records from 03/01/25. Patient was seen for GERD (gastroesophageal reflux disease).) Clinical information provided by:: patient Social determinants that could affect healthcare access:: none Patient has the following chronic illnesses:: Hypertension, Hemorrhoids, Gastroesophageal Reflux Disease, Arthritis and Osteoporosis How is presenting disease/condition affected by chronic disease/condition?: exacerbated by Evaluation data The following diagnostics were reviewed and interpreted by me:: lab results, radiology exam(s) and EKG tracing(s) Lab and/or radiology exams considered but not ordered:: None Interpretation Summary: RADIOLOGY Chest X-Ray: Refer to MDM above. Medications / Prescriptions Medications or Prescriptions considered but not ordered:: None Medication administrations:: Medication Administration History Discontinued Medications Metoprolol Succinate (Metoprolol Succinate Xl 25 Mg Tabcr) 25 mg PO X1 ONE Stop: 04/16/25 01:58 Last Admin: 04/16/25 02:16 Dose: 25 mg Documented By: BD See above if any. Consultations Consultation(s) initiated? (list below): No Diagnosis Recheck Differential Diagnosis: other (Hypertensive Urgency vs Emergency, Electrolyte abnormality, Anxiety disorder) Most likely diagnosis given after review of the tests above:: None Admission Indicated Admission indicated?: not indicated Explain why admission is indicated or not indicated:: Patient does not meet admission criteria. Admission Request Was there a request for admission?: No Disposition Plan Disposition Plan: Discharge Discharge Attestation Discharge Attestation: The patient and all family members were given an opportunity to ask questions and understood the discharge instructions. Discharge instructions specifically effects, indications for sooner follow up or return to the emergency department, and the expected course of current diagnosis. Patient condition: Stable Discharge Plan Plan Patient Disposition: HOME (Self Care) Prescriptions/Referrals Prescriptions/Med Rec: No Action nifedipine 90 mg tablet extended release 90 mg PO DAILY estradiol [Estrace] 0.01 % (0.1 mg/gram) cream 2 g vaginal DIRECTED Patient Comments: Twice a week cilostazol 100 mg tablet 100 mg PO DAILY omeprazole 40 mg capsule,delayed release(DR/EC) 40 mg PO DAILY benazepril 20 mg tablet 20 mg PO DAILY fluticasone propionate 50 mcg/actuation spray,suspension 2 spray INTRANASAL DAILY loratadine 10 mg tablet 10 mg PO DAILY sodium chloride 1,000 mg tablet,soluble 1,000 mg PO QDAY Qty: 30 0RF docusate sodium 100 mg Capsule 100 mg PO BID pantoprazole [Protonix] 40 mg tablet,delayed release (DR/EC) 40 mg PO QDAY Qty: 30 0RF alum-mag hydroxide-simeth [Maalox Maximum Strength] 400-400-40 mg/5 mL suspension 10 ml PO TID PRN (Reason: indigestion) Qty: 300 0RF Referrals: Constantine Campbell [Primary Care Provider] - In 1 week Problem List Clinical Impression: Asymptomatic hypertension Patient/Caregiver Discharge Instructions Additional Instructions: Call your regular doctors office today to get recommendation on medication adjustment to better control your blood pressure. Return to ER as needed or if condition worsens. Print Language: Chinese Stand Alone Forms: [employer] Award Info., Patient Portal Info Letter
== END 2025-04-16 04:11 | disposition home or self-care (01) ==
PROVIDERS: Physician Assistant; Emergency Provider Emergency Medicine; PCP Internal Medicine
DX: I10 Essential (primary) hypertension (principal); R94.31 Abnormal electrocardiogram [ECG] [EKG]
CPT/HCPCS: 36415; 71046; 80053; 81001; 83615; 83735; 83880; 84484; 85025; 85610; 85730; 93005; 99284; A9270

== ENCOUNTER 2025-05-15 13:23 | Emergency (ER) | payer OTHER, MEDICAID, SELFPAY ==
[2025-05-15 14:30] VITALS: BP 117/67; PULSE 76; RESP 16; TEMP 37; O2SAT 97; BMI 18.8
--- NOTE | 2025-05-15 14:36 | XR_ITS ---
Examination: CT brain head without contrast. 2-D sagittal coronal reconstructions Date and time of exam:May 15, 2025, 1625 hours, comparison April 18, 2024 INDICATIONS: Patient fell today with injury to back of the head, back of the head pain CTDI: vol (mGy):40.5 DLP: (mGycm):804 Technique: Multiple CT axial sections of the brain have been obtained, 5 mm slice thickness. Contrast has not been administered. 2-D sagittal, coronal reconstructions have been obtained Low dose protocols were performed. One or more of the following dose reduction techniques were used; automated exposure control, adjustment of the mA and/or KV according to patient size, use of iterative reconstruction technique. Findings: No significant ventricular enlargement. Intra-axial or extra-axial hemorrhage density is not seen. No mass effect or midline shift Basal cisterns are not remarkable. Fourth ventricle is midline. Cranial vault intact. Impression: Negative for acute hemorrhage, mass effect or midline shift
--- NOTE | 2025-05-15 14:36 | EKG_ITS ---
[facility] Test Date: 2025-05-15 Pat Name: GARY FUNES Department: Room: - Gender: Female Rn Cardiac: : 1945 Requested By: Srinivas Gibson Order Number: [id number] Reading MD: Srinivas Gibson Measurements Intervals Trosper Rate: 77 P: 47 GA: 155 QRS: 32 QRSD: 77 T: 44 QT: 368 QTc: 418 Interpretive Statements SINUS RHYTHM Compared to ECG 04/15/2025 22:34:04 No significant changes /store/S0/[id number].pdf
--- NOTE | 2025-05-15 14:37 | PD.EDRME ---
Rapid Medical Screening Exam [facility] Arrival date/time: 05/15/25 13:23 This is a case of 80-year-old female who came in in the emergency room due to syncopal episode and head injury patient had abdominal pain yesterday and took Benadryl patient woke up to go to the bathroom and fell and had syncopal episode and hit his head on the floor sustaining contusion in the scalp patient denies any neck pain but with headache and dizziness today no chest pain no shortness of breath no palpitation Chief Complaint: Fall Time Seen by Provider: 05/15/25 14:36 Vital signs: Vital Signs Temperature 98.6 F 05/15/25 14:30 Pulse Rate 76 05/15/25 14:30 Respiratory Rate 16 05/15/25 14:30 Blood Pressure 117/67 05/15/25 14:30 Pulse Oximetry (%) 97 05/15/25 14:30 Oxygen Delivery Method Room Air 05/15/25 14:30
[2025-05-15 15:44] LABS: Basophils # (Auto) 0.1 Thou/mm3 (0.0-0.2); Basophils % (Auto) 1 % (0-2.5); Eosinophils # (Auto) 0.0 Thou/mm3 (0.0-0.5); Eosinophils % (Auto) 0 % (0-10); Hematocrit 35.6 % (36.0-46.0); Hemoglobin 12.2 g/dL (12.0-16.0); Immature Granulocytes Auto 0.03 Thou/mm3 (0.00-0.00); Lymphocytes # (Auto) 1.2 Thou/mm3 (1.0-4.8); Lymphocytes % (Auto) 15 % (10-50); Mean Corpuscular HGB Conc 34.3 g/dl (31.0-37.0); Mean Corpuscular Hemoglobin 30.5 pg (25.0-35.0); Mean Corpuscular Volume 89 fL (80-100); Monocytes # (Auto) 0.6 Thou/mm3 (0.0-0.8); Monocytes % (Auto) 7 % (0-12); Neutrophils # (Auto) 6.2 Thou/mm3 (1.8-7.7); Neutrophils % (Auto) 77 % (37-80); Nucleated Red Blood Cell # 0.00 Thou/mm3 (0.00-0.00); Nucleated Red Blood Cell % 0 /100 WBC (0); Platelet Count 153 Thou/mm3 (140-440); RDW Standard Deviation 43.4 fL (36.4-46.3); Red Blood Count 4.00 Miln/mm3 (4.00-5.20); White Blood Count 8.1 Thou/mm3 (3.6-11.0)
[2025-05-15 16:03] LABS: Alanine Aminotransferase 21 U/L (10-49); Albumin, Serum 4.7 gm/dL (3.4-4.8); Albumin/Globulin Ratio 1.8 (1.2-2.2); Alkaline Phosphatase 82 U/L (46-116); Anion Gap 8 (7-16); Aspartate Amino Transferase 23 U/L (0-34); BUN/Creatinine Ratio 20 Ratio (12-20); Bilirubin,Total 0.5 mg/dL (0.3-1.2); Blood Urea Nitrogen 14 mg/dL (9-23); Calcium 10.7 mg/dL (8.3-10.6); Calcium (Corrected) 10.7 mg/dL (8.5-10.1); Carbon Dioxide 28.1 mMol/L (20.0-31.0); Chloride 93 mMol/L (98-107); Creatinine (Component) 0.7 mg/dL (0.6-1.3); Estimated Creatinine Clearance 46.7 mL/min (>60); Globulin 2.6 gm/dL (2.3-3.5); Glucose 88 mg/dL (74-106); Lipase 36 U/L (12-53); Osmolality,Calculated 258 (275-295); Potassium 4.0 mMol/L (3.4-5.1); Sodium 129 mMol/L (136-145); Total Protein 7.3 gm/dL (5.7-8.2); Troponin I < 0.020 ng/mL (0.0-0.045); eGFR > 60 See Note
[2025-05-15 16:40] LABS: Collection Type, Urine Voided
[2025-05-15 17:15] LABS: Bacteria,Urine Rare; Bilirubin,Urine Negative (Negative); Blood,Urine Trace (Negative); Budding Yeast,Urine Present; Clarity,Urine Turbid (Clear/Hazy); Color,Urine Lt-Yellow (Lt Yel-Yel); Glucose, Urine Negative (Negative); Ketones,Urine Negative (Negative); Leukocyte Esterase,Urine Positive (Negative); Nitrite,Urine Negative (Negative); PH,Urine 7.0 (5.0-7.0); Protein,Urine Negative (Neg - Trace); RBC,Urine 7 /hpf (0-3); Specific Gravity,Urine 1.016 (1.001-1.035); Squamous Epithelial Cell,Urine 21 /hpf (0-5); Urobilinogen,Urine Negative mg/dL (0.0-1.0); WBC,Urine 5 /hpf (0-5)
[2025-05-15 17:43] VITALS: BP 137/70; PULSE 91; RESP 17; TEMP 36.4; O2SAT 97
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
[2025-05-15] MEDS: SODIUM CHLORIDE 0.9% 1000 ML 1,000 ML 999 ML IV (18:48)
[2025-05-15 19:41] VITALS: BP 124/82; PULSE 89
== END 2025-05-15 19:42 | disposition home or self-care (01) ==
PROVIDERS: Nurse Practitioner Family; Emergency Provider Emergency Medicine; PCP Internal Medicine
DX: S09.90XA Unspecified injury of head, initial encounter (principal); S00.03XA Contusion of scalp, initial encounter; N39.0 Urinary tract infection, site not specified; K29.70 Gastritis, unspecified, without bleeding; E87.1 Hypo-osmolality and hyponatremia; W19.XXXA Unspecified fall, initial encounter
CPT/HCPCS: 36415; 70450; 80053; 81001; 83690; 84484; 85025; 93005; 99283; J7030

== ENCOUNTER 2025-06-05 10:21 | Outpatient (AMB) | payer MEDICARE, MEDICAID, SELFPAY ==
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
[2025-06-05 10:50] VITALS: BP 120/70; PULSE 89; RESP 16; TEMP 36.6; O2SAT 98; BMI 17.0
== END 2025-06-05 11:19 | disposition home or self-care (01) ==
PROVIDERS: PCP Internal Medicine; Referring Provider Internal Medicine; Supervising Provider Obstetrics & Gynecology; Visit Provider Obstetrics & Gynecology
DX: N81.10 Cystocele, unspecified (principal); N81.6 Rectocele; I10 Essential (primary) hypertension; Z79.899 Other long term (current) drug therapy; Z88.1 Allergy status to other antibiotic agents; Z88.0 Allergy status to penicillin; Z91.048 Other nonmedicinal substance allergy status
CPT/HCPCS: 99213; G0463

== ENCOUNTER → 2025-06-12 | Outpatient (CLI) | payer OTHER, MEDICAID, SELFPAY ==
--- NOTE | 2025-06-12 14:20 | XR_ITS ---
Examination: Bone densitometry Date and time of exam:June 12, 2025 1535 hours INDICATIONS: Hysterectomy age 43% osteoporosis Technique: Lumbar spine and hip total bone mineralization values of an calculated. Peak reference and age match control results have been displayed. Findings: Lumbar spine total bone mineralization is0.730 gm/cm2. This is 2.9 standard deviations below peak reference. This is 0.2 standard deviations below age-matched controls. Hip total bone mineralization is 0.567 gm/cm2 This is 2.9 standard deviations below peak reference. This is 0.9 standard deviations below age-matched controls Impression: There is osteoporosis based on lumbar spine measurements. There is osteoporosis based on hip measurements Lumbar mineralization is decreased 4.6% compared with November 20, 2022 Hip mineralization is decreased 7.0% compared with November 20, 2022
== END | disposition home or self-care (01) ==
PROVIDERS: PCP Internal Medicine; Referring Provider Internal Medicine; Visit Provider Internal Medicine
DX: M81.0 Age-related osteoporosis without current pathological fracture (principal)
CPT/HCPCS: 77080

== ENCOUNTER → 2025-08-21 | Outpatient (BNVA) | payer OTHER, MEDICAID, SELFPAY | END | disposition home or self-care (01) | PROVIDERS: PCP Family Medicine; Referring Provider Family Medicine; Visit Provider Urology | DX: N81.10 Cystocele, unspecified (principal); N81.6 Rectocele; K57.90 Diverticulosis of intestine, part unspecified, without perforation or abscess without bleeding; I10 Essential (primary) hypertension; Z48.816 Encounter for surgical aftercare following surgery on the genitourinary system; Z87.440 Personal history of urinary (tract) infections | CPT/HCPCS: 81003; 99212; G0463 ==